=== PATIENT | female | born 1955 | race Caucasian/White ===

== ENCOUNTER 2021-01-03 08:55 | Outpatient (CLI) | payer MEDICARE, MEDICAID ==
[~2021-01-03] VITALS: Ht 149.9 cm; Wt 83.2 kg
[2021-01-03] VITALS (11 sets, daily range): BP systolic 151–189; BP diastolic 54–72
[~2021-01-03 08:55] MED LIST: ALPR0.25 PO; AMOX1TAB61 PO; CITA20TA9 PO; FLUC200T PO; LEVO88TA4 PO; METO25TA4 PO; OXYC1TAB19 PO; SIMV40TA18 PO; ZOLP10TA PO
[2021-01-03 09:43] LABS: HEMATOCRIT 34.1 % (36.0-47.0); HEMOGLOBIN 11.4 g/dL (12.0-15.5); RED BLOOD COUNT 4.22 x10^6/uL (3.50-5.40); WHITE BLOOD COUNT 5.6 x10^3/uL (4.0-11.0)
[2021-01-03 09:54] LABS: CALCIUM 8.6 mg/dL (8.5-10.1); CREATININE 1.3 mg/dL (0.6-1.0); GFR 41.1; POTASSIUM 4.3 mmol/L (3.5-5.1)
[2021-01-03] MEDS ORDERED: IODIXANOL 320 MG/ML 100 ML VIAL. ONE (10:31)
[2021-01-03] MEDS ORDERED: LIDOCAINE 1% Multi-Dose 20 ML VIAL. ONE (10:31)
[2021-01-03] MEDS ORDERED: MIDAZOLAM HCL/PF 2 MG/2 ML VIAL. ONE (10:55)
[2021-01-03] MEDS ORDERED: fentaNYL PF VIAL 100 MCG/2 ML VIAL ONE (10:55)
--- NOTE | 2021-01-03 11:01 | PDOC ---
MODERATE SEDATION ASSESSMENT RISKS/ALTERNATIVES Risks/Alternatives Risks and alternatives of this type of sedation and procedure discussed with: RISK/ALTERNATIVES: Patient H & P ON CHART H & P H & P on chart and reviewed for co-morbid conditions and appropriate labs. H&P ON CHART: Yes STATUS PREG STATUS ASSESSED: N/A MEDS/ALLERGIES REVIEWED Meds/Allergies Reviewed Medications and Allergies including time and route of recently administered narcotics and sedatives. MEDS/ALLERGIES REVIEWED: Yes ASA RATING ASA RATING: III AIRWAY ASSESSMENT Airway Assessment Airway patency, oral function limitations, presence of caps, crowns, dentures, partials, and ability to extend neck assessed. AIRWAY ASSESSMENT: Yes MALLAMPATI SCORE MALLAMPATI SCORE: II PRE-SEDATION ASSESSMENT PRE-SEDATION ASSESSMENT: Yes ABENA FRANCIS MD Jan 03, 2021 11:01
[2021-01-03] MEDS ORDERED: MIDAZOLAM HCL/PF 2 MG/2 ML VIAL. IV ONE (11:30)
[2021-01-03] MEDS ORDERED: IODIXANOL 320 MG/ML 100 ML VIAL. IART ONE (11:30)
[2021-01-03] MEDS ORDERED: LIDOCAINE 1% Multi-Dose 20 ML VIAL. INJ ONE (11:30)
[2021-01-03] MEDS ORDERED: fentaNYL PF VIAL 100 MCG/2 ML VIAL IV ONE (11:30)
[2021-01-03] MEDS ORDERED: NITROGLYCERIN SUBLINGUAL 0.4 MG BOTTLE OF 25. SL PRN (11:45)
[2021-01-03] MEDS ORDERED: IV 1/2 NORMAL SALINE 1,000 ML IV SCH (11:45)
--- NOTE | 2021-01-03 12:09 | CARD ---
MR#: [id number] Date of Study: 01/03/2021 Ordering Physician: ABENA FRANCIS, Referring Physician: ABENA FRANCIS, Tech: RT Angela(R) APPROVED REPORT Technologist: RT Angela(R) Nurse: Monica Leon RN Procedure(s) performed: Right and left heart catheterization, selective coronary angiography and paulina ctive angiography of the bypass grafts FL TIME: 6.7 MINS DOSE: 46 GYCM2 CONTRAST: 97 ML MODERATE SEDATION: 39 MINS INDICATION The indication(s) include : Dyspnea on minor exertion and chest pressure concerning for unstable fern na. [facility] Clinical Frailty Scale [facility] Clinical Frailty Scale: Mildly Frail Heart Failure Heart Failure: No CASE TECHNIQUE IV conscious sedation was used throughout procedure with appropriate monitoring and was performed in the presence of a registered nurse who was an independent trained observer other than the physician p erforming the procedure. During this case, Fluoroscopy and low osmolar contrast were used for imaging . Specimen(s) Removed: No Estimated Blood loss: 15 cc's. PROCEDURE NARRATIVE After explaining the risk, benefits and alternative options, informed consent was obtained from pamela woods. Patient was brought to the cardiac Ocular Pathologist and her right groin was prepped and draped in the us ual fashion. 20 cc of 2% lidocaine was infiltrated into the skin and subcutaneous tissues for local anesthesia. Arterial and venous accesses were obtained in the right common femoral artery and vein r espectively and 6 and 8 [place] sheaths inserted. A 7.5 [place] catheter was then advanced u nder fluoroscopy guidance and intracardiac pressures, oxygen saturations and cardiac output by David m ethod measured. Subsequently, 6 [place] JL4 and 6 [place] JR4 catheters were used to perform selective angiography of the left and right coronary arteries. The 6 [place] JR4 catheter was then used to per form selective angiography of the saphenous vein graft to the right coronary artery, the sequential s aphenous vein graft to the diagonal and obtuse marginal branches and the left internal mammary artery graft to the left anterior ascending artery. LVEDP and transaortic gradients were measured. Patien t tolerated the procedure well. Hemostasis was achieved using Angio-Seal. There were no immediate c omplications. FINDINGS A. RIGHT HEART CATHETERIZATION 1. Intracardiac pressures: Mean right atrial pressure 5 mmHg, right ventricular pressure 35/1 mmHg, pulmonary artery pressure 34/12 mmHg with mean PA pressure 22 mmHg, mean pulmonary capillary wedge pr essure 12 mmHg. Normal right-sided filling pressures without any significant pulmonary hypertension. 2. Oxygen saturations: Right atrium 68%, pulmonary artery 63%, femoral arterial sheath 97%. No evid ence of intracardiac shunt. 3. Cardiac output by David method 3 L/min. B. LEFT HEART CATHETERIZATION 1. Hemodynamics: Left ventricular end-diastolic pressure 19 mmHg. No pullback gradient across the a ortic valve. 2. Coronary and bypass graft angiography: a. The left main coronary artery arose from the left sinus of Valsalva, gave rise to the left anteri or descending, ramus intermedius and left circumflex arteries and showed 80% distal segment stenosis. b. The left anterior descending artery showed 70% stenosis in the midsegment. c. The ramus intermedius artery did not show any significant stenosis. d. The left circumflex artery showed 90% stenosis in the proximal to mid segment. e. The right coronary artery arose from the right sinus of Valsalva and showed a long stented proxim al, mid and mid to distal segments with in-stent chronic total occlusion. f. The left internal mammary artery graft to the left anterior descending artery was widely patent. Distal to the anastomosis the [place] left anterior descending artery did not show any significant st enosis. g. The sequential saphenous vein graft to the diagonal branch of LAD and obtuse marginal branch of L Cx was widely patent. h. The saphenous vein graft to the right coronary artery showed a long 70% stenosis in the proximal segment and a critical 95% stenosis in the midsegment. Conclusion 1. Severe [place] vessel coronary artery disease s/p coronary artery bypass surgery as described abov e with patent SENIOR to LAD, patent sequential SVG to diagonal/OM and long 70% stenosis followed by cri tical 95% stenosis involving the SVG to RCA. 2. Normal right-sided filling pressures without any significant pulmonary hypertension. 3. No evidence of intracardiac shunt. Recommendations Since patient is very symptomatic, we will consider referral for complex PCI to in-stent SAFETY SUPERVISOR sherman g [place] right coronary artery. Signed by : Abena Francis, Electronically Approved : 01/03/2021 12:08:51
--- NOTE | 2021-01-03 14:45 | NUR ---
Patient taken to cardiac waiting room via wheelchair for ECHO. PIV remains intact, tech will remove. Instructions provided on site care, sedation. Patient and significant other verbalized understanding. No bleeding at access site. Dressing clean dry intact. No sign of hematoma. Patient able to walk to restroom and back.
== END 2021-01-03 14:30 | disposition home or self-care (01) ==
LOC: CCL 08:55
PROVIDERS: ATTEND Internal Medicine Cardiovascular Disease
DX: R06.09 Other forms of dyspnea (principal); I25.110 Atherosclerotic heart disease of native coronary artery with unstable angina pectoris; I10 Essential (primary) hypertension; E78.00 Pure hypercholesterolemia, unspecified; E03.9 Hypothyroidism, unspecified; F41.9 Anxiety disorder, unspecified; F32.9 Major depressive disorder, single episode, unspecified; Z88.0 Allergy status to penicillin; Z88.5 Allergy status to narcotic agent; Z79.899 Other long term (current) drug therapy; Z98.890 Other specified postprocedural states; Z20.822 Contact with and (suspected) exposure to COVID-19
CPT/HCPCS: 36415; 80048; 85027; 87426; 93461; 99152; 99153; C1760; C1769; C1773; C1892; J1644; J2250; J3010; J3490; Q9967; G0269